=== PATIENT | female | born 1960 | race American Indian/Alaskan Native ===

== ENCOUNTER 2018-05-18 10:58 | Outpatient (CLI) | payer BC ==
--- NOTE | 2018-05-18 12:43 | Mammography Report ---
BONE DENSITY STUDY: DEFINITIONS: BMD = Bone Mineral Density T-score = BMD related to mean peak bone mass of young adult (mean expressed in Standard Deviation) Z-score = Age matched BMD expressed in SD World Health Organization (WHO) Diagnostic Criteria Normal T-score > -1 SD Osteopenia T-score between -1 and -2.4 SD Osteoporosis T-score -2.5 SD or below FINDINGS: The weighted average BMD of lumbar spine L1-L4 is 1.026 with a T-score of -0.2. The weighted average BMD of hip is 0.940 with a T-score of 0. IMPRESSION: The patient's T-score is diagnostic for normal bone density and low relative risk for fracture. NOTE: BMD is not the only risk factor for fracture; also consider factors such as the patient's age, risk of falling, previous osteoporotic fracture, family history of osteoporotic fractures, current smoker, and low body weight. Padilla's triangle is a region of interest in femur, predominantly of trabecular bone. It is not a true anatomic site, and ISCD does not recommend its use clinically.
== END 2018-05-18 10:59 | disposition home or self-care (01) ==
LOC: SPVWC 10:58
PROVIDERS: ATTEND Internal Medicine Hematology & Oncology
DX: C50.411 Malignant neoplasm of upper-outer quadrant of right female breast (principal); I10 Essential (primary) hypertension; J45.909 Unspecified asthma, uncomplicated; E66.9 Obesity, unspecified; M19.90 Unspecified osteoarthritis, unspecified site
CPT/HCPCS: 77080

== ENCOUNTER 2020-02-12 09:01 | Outpatient (CLI) | payer BC ==
--- NOTE | 2020-02-12 10:16 | Mammography Report ---
DIGITAL SCREENING MAMMOGRAM WITH CAD, 02/12/2020 CLINICAL INFORMATION / INDICATION: Routine screening mammography. TECHNIQUE: Digital bilateral 2D mammography was obtained in the craniocaudal and mediolateral obliqu e projections. This examination was interpreted with the benefit of Computer-Aided Detection analysis . COMPARISON: 02/01/2018 FINDINGS: Breast Density: There are scattered areas of fibroglandular density. No dominant mass, suspicious calcifications, or architectural distortion in either breast. Postlumpectomy scarring is present in the right breast. Overall, no interval change. IMPRESSION: No mammographic evidence of malignancy. Follow up recommendation: Routine yearly BI-RADS Category 2: Benign. A "normal" or negative report should not discourage follow up or biopsy of a clinically significant f inding. A written summary of these findings will be mailed to the patient. The patient will be entered into a mammography reporting system which will generate a reminder letter for the patient's next appointmen t at the appropriate interval. The [employer] recommends yearly mammograms starting at age 40 and continuing as l malinda as a woman is in good health. Breast MRI is recommended for women with an approximate 20-25% or greater lifetime risk of breast cancer, including women with a strong family history of breast or ova ilia cancer or who have been treated for Hodgkin's disease. Signer Name: Selene Anderson MD Signed: 02/12/2020 10:15 AM Workstation Name: [id number]
== END 2020-02-12 09:02 | disposition home or self-care (01) ==
LOC: SPVWC 09:01
PROVIDERS: ATTEND Surgery
DX: Z12.31 Encounter for screening mammogram for malignant neoplasm of breast (principal)
CPT/HCPCS: 77067

== ENCOUNTER 2020-03-04 09:14 | Outpatient (CLI) | payer BC ==
--- NOTE | 2020-03-04 10:53 | Magnetic Resonance Report ---
Bilateral breast MR without and with contrast. History: Patient at high risk for breast malignancy, personal history of right breast lumpectomy. Comparison: 02/12/2020, 04/23/2015, 04/13/2015. Technique: Multiplanar multisequence MR images of the breast were obtained before and after the intra venous administration of 18 mL of intravenous contrast. Post processing analysis and review was perfo rmed on a separate computer workstation. Findings: Breast composition is scattered fibroglandular. There is minimal background parenchymal enhancement w ithin both breasts. Mild postsurgical change within the right lateral posterior breast at site of prior surgery. No discr ete enhancing mass, dominant focus, or other abnormal enhancement is identified within either breast. No abnormal axillary or internal mammary lymph nodes. Impression: No evidence of breast malignancy status post right breast lumpectomy. Patient will be due for routine screening mammogram in January 2021. BIRADS 2: Benign A normal MRI does not exclude the presence of some forms of breast malignancy as literature reports s uggest that some forms of ductal carcinoma in situ or lobular carcinoma, particularly, may not be det ected on MRI. The sensitivity and specificity of MRI for cancers under 5 mm may be reduced. MRI does not replace the recommendation for annual conventional mammographic evaluation and should be used as an adjunct to mammography and physical examination as necessary. Signer Name: Oc Campoverde MD Signed: 03/04/2020 10:49 AM Workstation Name: [id number]
== END 2020-03-04 09:15 | disposition home or self-care (01) ==
LOC: SPVIMAG 09:14
PROVIDERS: ATTEND Surgery
DX: Z85.3 Personal history of malignant neoplasm of breast (principal); Z90.11 Acquired absence of right breast and nipple
CPT/HCPCS: A9575; C8908; 77049

== ENCOUNTER 2020-11-04 10:47 | Outpatient (CLI) | payer BC ==
--- NOTE | 2020-11-05 16:19 | Mammography Report ---
DEXA BONE DENSITY SCAN INDICATION / CLINICAL INFORMATION: ON AROMATASE INHIBITOR. 60 years Female COMPARISON: DEXA scan performed on 05/18/2018. LUMBAR SPINE, L1-L4: - Bone mineral density (BMD) = 1.009 g/cm2. - T-score = -0.3 - Z-score = 0.9 Change (%) since most recent prior (if available): -1.7 LEFT HIP, NECK : - Bone mineral density (BMD) = 0.755 g/cm2. - T-score = -0.9 - Z-score = 0.4 Change (%) since most recent prior (if available): +4 IMPRESSION: 1. WHO Classification: Normal bone density. Fracture Risk: Not Increased. Note: 10-Year Fracture Risk (FRAX) not reported. This DEXA unit lacks FRAX functionality. BMD Reporting Guidelines (ISCD, 2015) BMD Reporting in Postmenopausal Women and in Men Age 50 and Older - T-scores are preferred. - The WHO densitometric classification is applicable. BMD Reporting in Females Prior to Menopause and in Males Younger Than Age 50 - Z-scores, not T-scores, are preferred. This is particularly important in children. - A Z-score of -2.0 or lower is defined as below the expected range for age, and a Z-score above -2.0 is within the expected range for age. - Osteoporosis cannot be diagnosed in men under age 50 on the basis of BMD alone. - The WHO diagnostic criteria may be applied to women in the menopausal transition. http://www.iscd.org/official-positions/8337-qqmu-monwzywm-positions-adult/ Signer Name: Marques Ratliff MD Signed: 11/05/2020 4:15 PM Workstation Name: [id number]
== END 2020-11-04 10:48 | disposition home or self-care (01) ==
LOC: SPVWC 10:47
PROVIDERS: ATTEND Internal Medicine Hematology & Oncology
DX: C50.411 Malignant neoplasm of upper-outer quadrant of right female breast (principal); Z79.811 Long term (current) use of aromatase inhibitors
CPT/HCPCS: 77080

== ENCOUNTER 2021-02-12 08:43 | Outpatient (CLI) | payer BC | END 2021-02-12 08:44 | disposition home or self-care (01) | LOC: MAMMO 08:43 | PROVIDERS: ATTEND Physician Assistant Medical | DX: Z12.31 Encounter for screening mammogram for malignant neoplasm of breast (principal) | CPT/HCPCS: 77067 ==